=== PATIENT | male | born 1995 | race Two or more races ===

== ENCOUNTER 2017-07-25 01:59 | Emergency (ER) | payer OTHER ==
[2017-07-25 08:08] VITALS: BP 124/79
[2017-07-25] MEDS ORDERED: LET TOPICAL TP ONE (08:16)
[2017-07-25] MEDS ORDERED: TRIPLE ANTIBIOTIC TP ONE (08:16)
[2017-07-25] MEDS ORDERED: MOTRIN PO ONE (08:16)
[2017-07-25] MEDS ORDERED: XYLOCAINE 1% 20 mL INFILTRATI ONE (08:16)
[2017-07-25] MEDS ORDERED: NACL 0.9% IR ONE (08:16)
[2017-07-25] MEDS ORDERED: TRIMOX PO ONE (08:38)
--- NOTE | 2017-07-25 08:42 | Emergency Department Report ---
ED Laceration HPI - HPI Chief Complaint: Laceration/Recheck/Suture Stated Complaint: LAC LT INDEX FINGER Time Seen by Provider: 07/25/17 07:18 Occurred When: Yesterday Location: Upper Extremity Severity: mild Tetanus Status: Up to Date Laceration Symptoms: Yes Pain, No Foreign Body Sensation, No Numbness, No Weakness Other History: accidentally cut tip of finger w knife. bleeding controlled ED Review of Systems ROS: Stated complaint: LAC LT INDEX FINGER Other details as noted in HPI Comment: All other systems reviewed and negative Skin: other (avulsion of tip of finger. w knife. tdap utd. bleeding controlled. ) ED Past Medical Hx - Past Medical History Previous Medical History?: No - Surgical History Past Surgical History?: No - Social History Smoking Status: Never Smoker Substance Use Type: None - Medications Home Medications: Home Medications Medication Instructions Recorded Confirmed Last Taken Type Amoxicillin [Trimox CAP] 500 mg PO BID #20 capsule 07/25/17 Unknown Rx Laceration Physical Exam - Exam General: Vital signs noted. No distress. Alert and acting appropriately. Wound Length (cm): 1 Laceration Location: Upper Extremity Full Body Front + Back: 1 - tip left index finger Laceration Exam: Yes Normal Distal CMS, No Foreign Body, No Exposed Tendon, Vessel, or Nerve, No Tendon Injury ED Course Vital Signs 07/25/17 07/25/17 02:15 08:07 Temperature 97.9 F Pulse Rate 65 50 L Respiratory 18 Rate Blood Pressure 151/95 Blood Pressure 124/79 [Right] O2 Sat by Pulse 97 Oximetry - Reevaluation(s) Reevaluation #1: 07/25/17 08:40 wound cleaned medicated not able to suture for it is a complete avulsion of the distal lateral tip of the index finger no subungal n/v intact rapid cap refill good pulses full rom wound care instructions provided dc home ED Medical Decision Making - Medical Decision Making see note - Differential Diagnosis lac Critical care attestation.: If time is entered above; I have spent that time in minutes in the direct care of this critically ill patient, excluding procedure time. ED Disposition Clinical Impression: Avulsion of finger tip Disposition: DC-01 TO HOME OR SELFCARE Is pt being admited?: No Does the pt Need Aspirin: No Condition: Stable Instructions: Laceration (ED), Finger Laceration (ED) Additional Instructions: keep wound clean and dry changed dressing every 12 hours wash with soap and water non adh dressing will granulate in med as ordered to prevent infection motrin or tylenol for pain follow up pcp Referrals: PRIMARY CAREMD [Primary Care Provider] - 3-5 Days TAMIA JUARES MD [Staff Physician] - 3-5 Days Time of Disposition: 08:42
== END 2017-07-25 09:45 | disposition home or self-care (01) ==
LOC: ED 01:59
DX: S61.301A Unspecified open wound of left index finger with damage to nail, initial encounter (principal); W26.0XXA Contact with knife, initial encounter; Y93.89 Activity, other specified; Y92.89 Other specified places as the place of occurrence of the external cause; Y99.8 Other external cause status
CPT/HCPCS: 99283; A6250